=== PATIENT | female | born 1990 | race African-American/Black ===

== ENCOUNTER 2020-07-29 19:02 | Emergency (ER) | payer OTHER ==
[~2020-07-29] VITALS: Ht 157.5 cm; Wt 108.9 kg
[2020-07-29] MEDS ORDERED: IBUPROFEN 600600 M1 PO (20:43)
[2020-07-29 21:07] VITALS: BP 129/96
== END 2020-07-29 21:07 | disposition home or self-care (01) ==
LOC: ER 19:02
DX: S00.33XA Contusion of nose, initial encounter (principal); W50.0XXA Accidental hit or strike by another person, initial encounter; Y93.89 Activity, other specified; Y92.89 Other specified places as the place of occurrence of the external cause; Y99.8 Other external cause status

== ENCOUNTER 2020-09-16 20:26 | Emergency (ER) | payer OTHER ==
[~2020-09-16] VITALS: Ht 157.5 cm; Wt 104.3 kg
[~2020-09-16 20:26] MED LIST: IBUPROFEN 600600 M1 PO
[2020-09-16 20:52] LABS: URINE BILIRUBIN NEGATIVE (Negative); URINE BLOOD NEGATIVE (Negative); URINE CLARITY CLEAR; URINE COLOR YELLOW; URINE GLUCOSE-RANDOM* NEGATIVE (Negative); URINE KETONES NEGATIVE (Negative); URINE LEUKOCYTES-REFLEX TRACE (Negative); URINE NITRITE-REFLEX NEGATIVE (Negative); URINE PROTEIN (DIPSTICK) NEGATIVE (Negative); URINE UROBILINOGEN 0.2 E.U./dl (0.2-1.0)
[2020-09-16 21:27] LABS: ABSOLUTE NEUTROPHILS 4.7 thou/uL (1.4-8.2); BASOPHILS 0.4 % (0.0-2.0); EOSINOPHILS 0.9 % (0.0-3.0); HEMOGLOBIN 12.9 gm/dL (12.0-15.0); MCH 26.7 pg (26.0-34.0); MCHC 33.1 g/dL (28.0-37.0); MCV 80.7 fL (80.0-100.0); MONOCYTES 7.4 % (1.0-8.0); PLATELET COUNT 232 thou/uL (150-400); POLYS 60.3 % (36.0-66.0); RBC 4.83 mil/uL (4.20-5.00); RDW 15.3 % (10.5-14.5); WBC 7.7 thou/uL (4.0-11.0)
[2020-09-16 21:36] LABS: ANION GAP 8 mmol/L (7-16); BUN 13 mg/dL (7-18); CALCIUM 9.2 mg/dL (8.5-10.1); CHLORIDE 104 mmol/L (98-107); CO2 23 mmol/L (21-32); CREATININE 0.8 mg/dL (0.6-1.0); GLUCOSE 110 mg/dL (74-106); SODIUM 135 mmol/L (136-145)
[2020-09-16 21:38] LABS: POTASSIUM 4.5 mmol/L (3.5-5.1)
[2020-09-16 21:47] LABS: ALBUMIN 3.3 g/dL (3.4-5.0); AMYLASE 105 U/L (25-115); DIRECT BILIRUBIN < 0.1 mg/dL (<0.1-0.2); LIPASE 218 U/L (73-393); SGOT 22 U/L (15-37); SGPT 21 U/L (14-59); TOTAL BILIRUBIN 0.2 mg/dL (0.2-1.0); TOTAL PROTEIN 7.7 g/dL (6.4-8.2); TROPONIN-I <0.06 ng/mL (<0.06)
[2020-09-16] MEDS ORDERED: REGLAN 10 MG TA10 MG PO (23:40)
[2020-09-16] MEDS ORDERED: ZOFRAN ODT4 MG PO (23:40)
[2020-09-17 00:28] VITALS: BP 125/79
--- NOTE | 2020-09-17 08:21 | EKG ---
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
== END 2020-09-16 23:50 | disposition home or self-care (01) ==
LOC: ER 20:26
PROVIDERS: Emergency Medicine
DX: R10.31 Right lower quadrant pain (principal); R42 Dizziness and giddiness

== ENCOUNTER 2020-12-03 21:16 | Emergency (ER) | payer OTHER ==
[~2020-12-03] VITALS: Ht 157.5 cm; Wt 79.4 kg
[~2020-12-03 21:16] MED LIST changes: +REGLAN 10 MG TA10 MG PO; +ZOFRAN ODT4 MG PO
[2020-12-03 22:26] LABS: URINE BILIRUBIN NEGATIVE (Negative); URINE BLOOD NEGATIVE (Negative); URINE CLARITY CLEAR; URINE COLOR YELLOW; URINE GLUCOSE-RANDOM* NEGATIVE (Negative); URINE KETONES NEGATIVE (Negative); URINE LEUKOCYTES-REFLEX NEGATIVE (Negative); URINE NITRITE-REFLEX NEGATIVE (Negative); URINE PROTEIN (DIPSTICK) NEGATIVE (Negative); URINE SPECIFIC GRAVITY 1.015 (1.005-1.035); URINE UROBILINOGEN 0.2 E.U./dl (0.2-1.0)
[2020-12-03] MEDS ORDERED: METHOCARBAMOL500 M2 PO (22:32)
[2020-12-03] MEDS ORDERED: NAPROSYN500 MG PO (22:32)
[2020-12-03 22:39] VITALS: BP 130/94
== END 2020-12-03 22:39 | disposition home or self-care (01) ==
LOC: ER 21:16
PROVIDERS: Nurse Practitioner Family
DX: R07.81 Pleurodynia (principal); R10.30 Lower abdominal pain, unspecified

== ENCOUNTER 2021-04-22 20:14 | Emergency (ER) | payer OTHER ==
[~2021-04-22] VITALS: Ht 157.5 cm; Wt 108.9 kg
[~2021-04-22 20:14] MED LIST changes: +METHOCARBAMOL500 M2 PO; +NAPROSYN500 MG PO
[2021-04-22 22:05] VITALS: BP 118/50
== END 2021-04-22 22:12 | disposition home or self-care (01) ==
LOC: ER 20:14
DX: U07.1 COVID-19 (principal); Z79.899 Other long term (current) drug therapy